=== PATIENT | female | born 1935 | race Caucasian/White ===

== ENCOUNTER → 2016-09-28 | Day surgery (SDC) | payer MEDICARE ==
[~2016-09-28] MED LIST: 1-ME1LIQ PO; ADVAI100I PO; ALEN70TA39 PO; HYDR-3580 PO; LACTATED RINGER'S 1000 ML INJ 1,000 ML ONE; LEVO125T3 PO; LISI40TA PO; PROPOFOL 100 MG/10 ML INJ IV ONE; PROZ40CA PO; RIVA10 PO; TAB-TAB PO; WALKER STANDARD
--- NOTE | 2016-09-28 13:09 | GIPROC ---
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 PREP QUALITY: fair PREP TYPE:Miralax ESTIMATED BLOOD LOSS: None CONSENT: The patient understands the risks and benefits of the procedure and understands that these risks include, but are not limited to: sedation, allergic reaction, infection, perforation and/or bleeding. Alternative means of evaluation and treatment include, among others: physical exam, x-rays, and/or surgical intervention. The patient elects to proceed with this endoscopic procedure. medical equipment was checked for proper function. Hand hygiene and appropriate measures for infection prevention was taken. After the risks, benefits and alternatives of the procedure were thoroughly explained, Informed consent was verified, confirmed and timeout was successfully executed by the treatment team. A digital exam revealed external hemorrhoids The EC-[id number] ([id number]) and [id number] ([id number]) endoscope was introduced through the anus and advanced to the terminal ileum which was intubated for a short distance. The instrument was then slowly withdrawn as the colon was fully examined. COLON FINDINGS: Diverticulosis sigmoid,descending polyp cecum-diminutive cold biopsy with complete removal polyp pedunculated ascending colon-7 mm-hot snare polypectomy with complete removal, another 5 mm polyp near first one -hot snare polypectomy polyp pedunculated hepatic flexure-6 mm-hot snare polypectomy with complete removal . amother 5 mm polyp near first one-hot snare polypectomy with removal three polyps in midtransverse 6 mm, 5 mm and 5 mm -all sessile-hot snare polypectomy with complete removal erythema IC valve-biopsy. Retroflexed views revealed internal hemorrhoids and Retroflexed views revealed small internal hemorrhoids The scope was then completely withdrawn from the patient and the procedure terminated. PROCEDURE WITHDRAWAL TIME:25minutes ADVERSE EVENTS: There were no complications. IMPRESSIONS: 1. Diverticulosis sigmoid,descending polyp cecum-diminutive cold biopsy with complete removal polyp pedunculated ascending colon-7 mm-hot snare polypectomy with complete removal, another 5 mm polyp near first one -hot snare polypectomy polyp pedunculated hepatic flexure-6 mm-hot snare polypectomy with complete removal . amother 5 mm polyp near first one-hot snare polypectomy with removal three polyps in midtransverse 6 mm, 5 mm and 5 mm -all sessile-hot snare polypectomy with complete removal erythema IC valve-biopsy 2. Retroflexed views revealed internal hemorrhoids 3. Retroflexed views revealed small internal hemorrhoids 4. Revealed external hemorrhoids RECOMMENDATIONS: 1. Await biopsy results. Biopsy results will not be ready for 7-10 days. If you don't hear from us in two weeks, call our office for results. 2. Avoid NSAIDS and Aspirin 3. Yearly rectal exams 4. Ct enterography if negative will need hematology consult RECALL: Colonoscopy, pending biopsy results Evita Nguyễn MD eSigned: Evita Nguyễn MD 09/28/2016 1:08 PM cc: Sal Paulino, [facility] Brittany, Aruna Lee M.D, and Travis Portillo M.D. PATIENT NAME: Daisy Hutchinson MR#: [id number]
--- NOTE | 2016-09-28 13:13 | GIPROC ---
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 TOPICAL ANESTHETIC: none CONSENT: The patient understands the risks and benefits of the procedure and understands that these risks include, but are not limited to: sedation, allergic reaction, infection, perforation and/or bleeding. Alternative means of evaluation and treatment include, among others: physical exam, x-rays, and/or surgical intervention. The patient elects to proceed with this endoscopic procedure. medical equipment was checked for proper function. Hand hygiene and appropriate measures for infection prevention was taken. After the risks, benefits and alternatives of the procedure were thoroughly explained, Informed consent was verified, confirmed and timeout was successfully executed by the treatment team. The patient was anesthetized with topical anesthesia and the EC-3490Li ([id number]) endoscope was introduced through the mouth and advanced to the proximal jejunum. Retroflexed views revealed no abnormalities The gastroscope was then slowly withdrawn and removed. S/p gastric bypass [id number]. ADVERSE EVENTS: There were no complications. IMPRESSIONS: 1. S/p gastric bypass [id number] 2. Retroflexed views revealed no abnormalities RECOMMENDATIONS: 1. Await biopsy results. Biopsy results will not be ready for 7-10 days. If you don't hear from us in two weeks, call our office for biopsy results. 2. Anti-reflux regimen PATIENT CONDITION: stable DISPOSITION: Home REPEAT EXAM: EGD pending biopsy results Evita Nguyễn MD eSigned: Evita Nguyễn MD 09/28/2016 1:12 PM cc: Sal Paulino [facility] Brittany Lee M.D.
== END | disposition home or self-care (01) ==
LOC: ESDC 10:34
PROVIDERS: ATTEND Internal Medicine Gastroenterology
DX: D50.9 Iron deficiency anemia, unspecified (principal); Z86.010 Personal history of colon polyps; K57.90 Diverticulosis of intestine, part unspecified, without perforation or abscess without bleeding; D12.0 Benign neoplasm of cecum; D12.2 Benign neoplasm of ascending colon; D12.3 Benign neoplasm of transverse colon; K64.8 Other hemorrhoids; K64.4 Residual hemorrhoidal skin tags
CPT/HCPCS: 00740; 00810; 43239; 45385; 88305; J7120

== ENCOUNTER 2017-05-22 11:31 | Inpatient (IN) | payer MEDICARE ==
[2017-05-22] VITALS (7 sets, daily range): BP systolic 125–192; BP diastolic 53–80; PULSE 60–74; RESP 16–22; TEMP 96.9–98.2; O2SAT 92–100
[~2017-05-22 11:31] MED LIST changes: -LACTATED RINGER'S 1000 ML INJ 1,000 ML ONE; -PROPOFOL 100 MG/10 ML INJ IV ONE
[2017-05-22] MEDS ORDERED: ACETAMINOPHEN 1000 MG/100 ML 100 ML IV ONE (12:00)
[2017-05-22] MEDS ORDERED: MORPHINE SULFATE 4 MG/ML INJ IV PUSH ONE ×2 (12:00→13:45)
[2017-05-22 12:52] LABS: AUTOMATED NEUTROPHIL # 5.7 TH/MM3 (1.8-7.7); BASOPHIL # 0.1 TH/MM3 (0-0.2); EOSINOPHIL # 0.1 TH/MM3 (0-0.4); EOSINOPHIL % 1.5 % (0.0-4.0); HEMATOCRIT 39.6 % (35.0-46.0); HEMOGLOBIN 13.1 GM/DL (11.6-15.3); LYMPH % 13.7 % (9.0-44.0); MEAN CELL VOLUME 84.1 FL (80.0-100.0); MEAN CORPUSCULAR HEMOGLOBIN 27.8 PG (27.0-34.0); MEAN CORPUSCULAR HGB CONC 33.1 % (32.0-36.0); MEAN PLATELET VOLUME 9.2 FL (7.0-11.0); MONO % 6.3 % (0.0-8.0); MONOCYTE # 0.5 TH/MM3 (0-0.9); NEUT % 77.5 % (16.0-70.0); PLATELET COUNT 147 TH/MM3 (150-450); RED BLOOD COUNT 4.71 MIL/MM3 (4.00-5.30); RED CELL DISTRIBUTION WIDTH 15.3 % (11.6-17.2); WHITE BLOOD COUNT 7.3 TH/MM3 (4.0-11.0)
[2017-05-22] MEDS ORDERED: LEVO125T4 PO (12:53)
[2017-05-22] MEDS ORDERED: DULO1CAP2 PO (12:53)
[2017-05-22] MEDS ORDERED: METO-309 PO (12:53)
[2017-05-22] MEDS ORDERED: ONCETAB7 PO (12:53)
[2017-05-22] MEDS ORDERED: AMLO5TAB2 PO (12:53)
--- NOTE | 2017-05-22 13:07 | RADRPT ---
EXAM DATE/TIME: 05/22/2017 12:38 [facility] COMPARISON: No previous studies available for comparison. INDICATIONS : Left proximal femur pain post fall today MEDICAL HISTORY : None. SURGICAL HISTORY : None. ENCOUNTER: Initial ACUITY: 1 day PAIN SCORE: 10/10 LOCATION: Left proximal femur FINDINGS: Comminuted displaced intertrochanteric fracture. The bones are osteopenic. CONCLUSION: Comminuted displaced intertrochanteric fracture. Julieta Hopson MD on May 22, 2017 at 13:04 Board Certified Radiologist. This report was verified electronically.
--- NOTE | 2017-05-22 13:09 | RADRPT ---
EXAM DATE/TIME: 05/22/2017 12:38 [facility] COMPARISON: No previous studies available for comparison. INDICATIONS : Left hip pain post fall today MEDICAL HISTORY : None. SURGICAL HISTORY : None. ENCOUNTER: Initial ACUITY: 1 day PAIN SCORE: 10/10 LOCATION: Left hip FINDINGS: 3 views of the left hip demonstrate a comminuted intertrochanteric fracture. CONCLUSION: Comminuted intertrochanteric fracture. Julieta Hopson MD on May 22, 2017 at 13:05 Board Certified Radiologist. This report was verified electronically.
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
[2017-05-22 13:14] LABS: ALBUMIN 3.6 GM/DL (3.4-5.0); ALT (GPT) 16 U/L (10-53); AST (GOT) 23 U/L (15-37); BICARBONATE 30.2 MEQ/L (21.0-32.0); BLOOD UREA NITROGEN 19 MG/DL (7-18); CALCIUM 8.5 MG/DL (8.5-10.1); CHLORIDE 106 MEQ/L (98-107); CREATININE 0.58 MG/DL (0.50-1.00); GLOMERULAR FILTRATION RATE 99 ML/MIN (>89); GLUCOSE,RANDOM 91 MG/DL (74-106); SODIUM (NA) 141 MEQ/L (136-145)
[2017-05-22 13:24] LABS: ALKALINE PHOSPHATASE 68 U/L (45-117); TOTAL BILIRUBIN ADULT 0.7 MG/DL (0.2-1.0); TOTAL PROTEIN 6.5 GM/DL (6.4-8.2)
[2017-05-22] MEDS ORDERED: ONDANSETRON HCL 4 MG/2 ML VIAL IV PRN (14:00)
[2017-05-22] MEDS ORDERED: ACETAMINOPHEN 325 MG TAB PO PRN (14:00)
--- NOTE | 2017-05-22 14:00 | HHI.HP ---
HPI Service [facility] Hospitalists Primary Care Physician Aruna Bran D.O. Admission Diagnosis Hip fracture Chief Complaint: Left hip pain Travel History International Travel<30 Days: No Contact w/Intl Traveler <30 Da: No Traveled to Known Affected Are: No History of Present Illness Mrs. Hutchinson is a pleasant 81 y/o WF with HTN, hx of atrial fibrillation, osteoporosis/osteoarthritis and hx of symptomatic bradycardia s/p PPM in 2013. Pt [place] [facility] [place] after a mechanical fall at home. She reports that she was making breakfast this morning in the kitchen when she somehow tripped and fell although she does not remember what she tripped over. She denies any dizziness, syncope or presyncope. She had immediate left hip pain and pushed her medical alert device. She reports that one week ago she tripped and fell in the bathroom over the bath mat and fractured her left clavicle and is in a sling. Patient typically gets around in her home under her own power. She occasionally uses a cane for balance when she is outside the house. She lives with her daughter and son-in-law but they have been out of town on vacation for the last week. Her grand-daughter, Kalpana, is at her bedside currently. She denies any chest pain, SOB, palpitations, weakness, diaphoresis, nausea/vomiting. X-rays in the ED revealed a left comminuted displaced intertrochanteric fracture. Orthopedic surgery has been consulted. Review of Systems Constitutional: DENIES: Fever, Chills, Dizziness Eyes: DENIES: Vision loss Ears, nose, mouth, throat: DENIES: Hearing loss Respiratory: DENIES: Cough, Shortness of breath Cardiovascular: DENIES: Chest pain, Palpitations, Lower Extremity Edema Gastrointestinal: DENIES: Abdominal pain, Nausea, Vomiting Genitourinary: DENIES: Hematuria, Dysuria Musculoskeletal: COMPLAINS OF: Joint pain, DENIES: Back pain, Neck pain Integumentary: DENIES: Abnormal pigmentation, Rash Neurologic: DENIES: Headache Psychiatric: DENIES: Confusion Past Family Social History Past Medical History Atrial fibrillation Hx of symptomatic bradycardia/pauses s/p PPM Chronic iron deficiency anemia Hx of gastric bypass surgery about 12 years ago Osteoarthritis/Osteoporosis COPD, PFTs in 2012 noted moderately severe obstructive lung defect HTN Hypothyroidism s/p thyroidectomy Psoriasis Hx of TIA per the outpt records, pt denies this Hx of thyroid cancer Hx of tobacco use Past Surgical History Dual chambered pacemaker placement in 2014 Cholecystectomy Right hip intramedullary nail fixation for intertrochanteric fracture Bilateral knee surgeries Gastric bypass Hysterectomy Thyroidectomy Shoulder surgery Appendectomy EGD/colonoscopy in September 2016 Reported Medications Once Daily Multivitamin 1 Tab PO DAILY Lopressor 25 Mg PO DAILY (?BID) Levothyroxine 125 Mcg PO DAILY Duloxetine DR 30 Mg PO DAILY Amlodipine 5 Mg PO DAILY Allergies: Coded Allergies: pregabalin (Unverified Allergy, Severe, 11/25/16) "DOCTOR TOLD ME NOT TO TAKE EVER AGAIN" adhesive (Unverified Allergy, Intermediate, 11/25/16) RASH/SKIN IRRIATATION procaine (Unverified Allergy, Mild, 11/25/16) "DOESN'T WORK" Family History Several family members with hx of colon cancer Social History Remote hx of tobacco use, pt smoked up to 3ppd x 30 years, quit in 1985 Rare alcohol use Pt lives with her daughter and son-in-law She usually walks under her own power at home but occasionally uses a cane when ambulating outside the house She is a , her passed around 18 months ago Physical Exam Vital Signs Vital Signs Date Time Temp Pulse Resp B/P (MAP) Pulse Ox O2 Delivery O2 Flow Rate FiO2 05/22/17 11:56 82 22 96 Room Air 05/22/17 11:56 98.0 74 22 192/80 (117) 96 Room Air 05/22/17 11:46 66 18 192/80 (117) 99 Physical Exam GENERAL: This is a well-nourished, well-developed patient, in no apparent distress. HEENT: Atraumatic. Normocephalic. No temporal or scalp tenderness. No scleral icterus. Airway patent. NECK: Trachea midline, supple, nontender. CARDIO: Regular. RESP: CTA bilaterally. No wheezes, rales, or rhonchi. ABD: +BS, soft, non-tender, nondistended. EXT: Extremities without clubbing, cyanosis, or edema. LUE in sling NEURO: Awake and alert. Motor and sensory grossly within normal limits. Normal speech. Laboratory Laboratory Tests Test 05/22/17 12:07 White Blood Count 7.3 Red Blood Count 4.71 Hemoglobin 13.1 Hematocrit 39.6 Mean Corpuscular Volume 84.1 Mean Corpuscular Hemoglobin 27.8 Mean Corpuscular Hemoglobin Concent 33.1 Red Cell Distribution Width 15.3 Platelet Count 147 Mean Platelet Volume 9.2 Neutrophils (%) (Auto) 77.5 Lymphocytes (%) (Auto) 13.7 Monocytes (%) (Auto) 6.3 Eosinophils (%) (Auto) 1.5 Basophils (%) (Auto) 1.0 Neutrophils # (Auto) 5.7 Lymphocytes # (Auto) 1.0 Monocytes # (Auto) 0.5 Eosinophils # (Auto) 0.1 Basophils # (Auto) 0.1 CBC Comment DIFF FINAL Differential Comment Blood Urea Nitrogen 19 Creatinine 0.58 Random Glucose 91 Total Protein 6.5 Albumin 3.6 Calcium Level 8.5 Alkaline Phosphatase 68 Aspartate Amino Transf (AST/SGOT) 23 Alanine Aminotransferase (ALT/SGPT) 16 Total Bilirubin 0.7 Sodium Level 141 Potassium Level 3.9 Chloride Level 106 Carbon Dioxide Level 30.2 Anion Gap 5 Estimat Glomerular Filtration Rate 99 Result Diagram: 05/22/17 1207 05/22/17 1207 Imaging Last Impressions Hip X-Ray 05/22/17 0000 Signed Impressions: Service Date/Time: Monday, May 22, 2017 12:38 - CONCLUSION: Comminuted intertrochanteric fracture. Julieta Hopson MD Head CT 05/22/17 0000 Signed Impressions: Service Date/Time: Monday, May 22, 2017 13:44 - CONCLUSION: No acute disease. No significant change has occurred. Yury Perez MD Femur X-Ray 05/22/17 0000 Signed Impressions: Service Date/Time: Monday, May 22, 2017 12:38 - CONCLUSION: Comminuted displaced intertrochanteric fracture. Julieta Hopson MD Cervical Spine CT 05/22/17 0000 Signed Impressions: Service Date/Time: Monday, May 22, 2017 13:44 - CONCLUSION: Stable degenerative changes of the cervical spine. No evidence of acute bony injury. Yury Perez MD Caplaxmii VTE Risk Assessment Caprini VTE Risk Assessment: Mod/High Risk (score >= 2) Caprini Risk Assessment Model Point Value = 1 Point Value = 2 Point Value = 3 Point Value = 5 Age 41-60 Minor surgery BMI > 25 kg/m2 Swollen legs Varicose veins or History of unexplained or recurrent spontaneous Oral contraceptives or hormone replacement Sepsis (< 1 month) Serious lung disease, including pneumonia (< 1 month) Abnormal pulmonary function Acute myocardial infarction Congestive heart failure (< 1 month) History of inflammatory bowel disease Medical patient at bed rest Age 61-74 Arthroscopic surgery Major open surgery (> 45 min) Laparoscopic surgery (> 45 min) Malignancy Confined to bed (> 72 hours) Immobilizing plaster cast Central venous access Age >= 75 History of VTE Family history of VTE Factor V Leiden Prothrombin [id number] Lupus anticoagulant Anticardiolipin antibodies Elevated serum homocysteine Heparin-induced thrombocytopenia Other congenital or acquired thrombophilia Stroke (< 1 month) Elective arthroplasty Hip, pelvis, or leg fracture Acute spinal cord injury (< 1 month) Prophylaxis Regimen Total Risk Factor Score Risk Level Prophylaxis Regimen 0-1 Low Early ambulation 2 Moderate Order ONE of the following: *Sequential Compression Device (SCD) *Heparin 5000 units SQ BID 3-4 Higher Order ONE of the following medications: *Heparin 5000 units SQ TID *Enoxaparin/Lovenox 40 mg SQ daily (WT < 150 kg, CrCl > 30 mL/min) *Enoxaparin/Lovenox 30 mg SQ daily (WT < 150 kg, CrCl > 10-29 mL/min) *Enoxaparin/Lovenox 30 mg SQ BID (WT < 150 kg, CrCl > 30 mL/min) AND/OR *Sequential Compression Device (SCD) 5 or more Highest Order ONE of the following medications: *Heparin 5000 units SQ TID (Preferred with Epidurals) *Enoxaparin/Lovenox 40 mg SQ daily (WT < 150 kg, CrCl > 30 mL/min) *Enoxaparin/Lovenox 30 mg SQ daily (WT < 150 kg, CrCl > 10-29 mL/min) *Enoxaparin/Lovenox 30 mg SQ BID (WT < 150 kg, CrCl > 30 mL/min) AND *Sequential Compression Device (SCD) Assessment and Plan Problem List: (1) Hip fracture, left ICD Codes: S72.002A - Fracture of unspecified part of neck of left femur, initial encounter for closed fracture Status: Acute Plan: Left hip intertrochanteric fracture - Pt is an 81 y/o female with HTN, hx of atrial fibrillation, osteoporosis/ osteoarthritis and hx of symptomatic bradycardia s/p PPM in 2013. - Pt [place] [facility] after a mechanical fall at home when she somehow tripped and fell in the kitchen although she does not remember what she tripped over. No reported dizziness, weakness, syncope or presyncope. - X-rays in the ED revealed a left comminuted displaced intertrochanteric fracture. - Orthopedic surgery has been consulted. - CT hip has been ordered - Head CT was negative for acute changes - Cervical spine CT was negative for any acute injury - Per discussion with ED physician, pt planned for surgical intervention likely tomorrow - Given gently IVF - Pt without any hx of CAD, CVA, or diabetes - She reports that her BP is typically well controlled on Metoprolol 25mg once daily and Norvasc 5mg po daily - BP was quite elevated at admission, likely related to pain and that she had not yet taken her BP medications this morning. Her BP improved to 133/66 at the time of my interview in the ED after pts pain was better controlled. - Cont. pain control PRN with Creola and Morphine - NPO after MN except meds - Supportive care - DVT prophylaxis with SCDs Left clavicular fracture - She reports that one week ago she tripped and fell in the bathroom over the bath mat and fractured her left clavicle and is in a sling. - Pt not reporting any increased pain in the left arm/shoulder area - IS use with sling in place Hx of atrial fibrillation Hx of symptomatic bradycardia s/p PPM in 2013 - Pt currently in NSR on telemetry - EKG - Cont. telemetry monitoring - Resume Metoprolol and Norvasc as BP allows - Pt takes ASA 81mg po daily as an outpt for anticoagulation - She has been on Xarelto in the past when she had previous hip surgery in 2014 HTN - Resume home meds as BP allows - Clonidine PRN - Vasotec PRN COPD, PFTs in 2012 noted moderately severe obstructive lung defect Hx of tobacco use, none since 1985 - Pt does not use any inhalers or nebulizers as an outpt - Duonebs PRN (2) Hypertension ICD Codes: I10 - Hypertension Status: Acute (3) Afib ICD Codes: I48.91 - Afib Status: Acute (4) History of pacemaker ICD Codes: Z95.0 - History of pacemaker Status: Acute Assessment and Plan Patient examined. Assessment and plan formulated with Kalpana Rodas PA-C. I agree with the above. hip fx. s/p trip fall pt denies dizziness, cp, palpitations, syncope. her rhythm is paced. monitor on tele her bp has come down to sbp 130s. no medical contraindication to proceeding with planned ortho surgery tomorrow. Physician Certification 2 Midnight Certification Type: Admission for Inpatient Services Order for Inpatient Services The services are ordered in accordance with Medicare regulations or non- Medicare payer requirements, as applicable. In the case of services not specified as inpatient-only, they are appropriately provided as inpatient services in accordance with the 2-midnight benchmark. Estimated LOS (days): 3 3 days is the estimated time the patient will need to remain in the hospital, assuming treatment plan goals are met and no additional complications. Post-Hospital Plan: Not yet determined Problem Qualifiers (1) Hip fracture, left: Qualified Codes: S72.002A - Fracture of unspecified part of neck of left femur , initial encounter for closed fracture Kalpana Rodas May 22, 2017 14:00 Sly Reis MD May 22, 2017 17:04
--- NOTE | 2017-05-22 14:02 | PD ---
Data Data Last Documented VS Vital Signs Date Time Temp Pulse Resp B/P (MAP) Pulse Ox O2 Delivery O2 Flow Rate FiO2 05/22/17 11:56 82 22 96 Room Air 05/22/17 11:56 98.0 192/80 (117) Orders Orders Ct Brain W/O Iv Contrast(Rout) (05/22/17 ) Ct Cerv Spine W/O Contrast (05/22/17 ) Complete Blood Count With Diff (05/22/17 11:52) Comprehensive Metabolic Panel (05/22/17 11:52) ^ Insert Iv (05/22/17 11:52) Hip, Uni(Ap&Lat) Wo Ap Pelvis (05/22/17 ) Morphine Inj (Morphine Inj) (05/22/17 12:00) Acetaminophen 1000 Mg/100 Ml (Ofirmev 10 (05/22/17 12:00) Femur, One View (05/22/17 ) Ct Hip W/O Contrast (05/22/17 ) Morphine Inj (Morphine Inj) (05/22/17 13:45) Admit Order (Ed Use Only) (05/22/17 ) Consult Orthopedic (05/22/17 ) Labs Laboratory Tests Test 05/22/17 12:07 White Blood Count 7.3 TH/MM3 Red Blood Count 4.71 MIL/MM3 Hemoglobin 13.1 GM/DL Hematocrit 39.6 % Mean Corpuscular Volume 84.1 FL Mean Corpuscular Hemoglobin 27.8 PG Mean Corpuscular Hemoglobin Concent 33.1 % Red Cell Distribution Width 15.3 % Platelet Count 147 TH/MM3 Mean Platelet Volume 9.2 FL Neutrophils (%) (Auto) 77.5 % Lymphocytes (%) (Auto) 13.7 % Monocytes (%) (Auto) 6.3 % Eosinophils (%) (Auto) 1.5 % Basophils (%) (Auto) 1.0 % Neutrophils # (Auto) 5.7 TH/MM3 Lymphocytes # (Auto) 1.0 TH/MM3 Monocytes # (Auto) 0.5 TH/MM3 Eosinophils # (Auto) 0.1 TH/MM3 Basophils # (Auto) 0.1 TH/MM3 CBC Comment DIFF FINAL Differential Comment Blood Urea Nitrogen 19 MG/DL Creatinine 0.58 MG/DL Random Glucose 91 MG/DL Total Protein 6.5 GM/DL Albumin 3.6 GM/DL Calcium Level 8.5 MG/DL Alkaline Phosphatase 68 U/L Aspartate Amino Transf (AST/SGOT) 23 U/L Alanine Aminotransferase (ALT/SGPT) 16 U/L Total Bilirubin 0.7 MG/DL Sodium Level 141 MEQ/L Potassium Level 3.9 MEQ/L Chloride Level 106 MEQ/L Carbon Dioxide Level 30.2 MEQ/L Anion Gap 5 MEQ/L Estimat Glomerular Filtration Rate 99 ML/MIN MDM Supervised Visit with ESTER: No Narrative Course 81-year-old woman, mechanical fall, hip fracture. On aspirin. No other blood thinners. CT head and neck are pending. Spoke with Dr. Gonzalez. X-rays are open ambiguous. Patient unable to get in a better position for formal x-rays. Request CT hip which is ordered. Diagnosis Primary Impression: Hip fracture, left Admitting Information Admitting Physician Requests: it Cameron Salmon MD May 22, 2017 14:02
--- NOTE | 2017-05-22 14:23 | RADRPT ---
EXAM DATE/TIME: 05/22/2017 13:44 [facility] COMPARISON: CT BRAIN W/O CONTRAST, October 30, 2014, 17:57. INDICATIONS : Fall, laceration to back of head. RADIATION DOSE: 52.53 CTDIvol (mGy) MEDICAL HISTORY : Carcinoma, thyroid. Cardiovascular disease Hypertension. SURGICAL HISTORY : Appendectomy. Cholecystectomy.Hysterectomy. ENCOUNTER: Initial ACUITY: 1 day PAIN SCALE: 3/10 LOCATION: Bilateral occipital TECHNIQUE: Multiple contiguous axial images were obtained of the head. Using automated exposure control and adj ustment of the mA and/or kV according to patient size, radiation dose was kept as low as reasonably a chievable to obtain optimal diagnostic quality images. DICOM format image data is available electro nically for review and comparison. FINDINGS: CEREBRUM: The ventricles are normal for age. No evidence of midline shift, mass lesion, hemorrhage or acute in farction. No extra-axial fluid collections are seen. POSTERIOR FOSSA: The cerebellum and brainstem are intact. The 4th ventricle is midline. The cerebellopontine angle i s unremarkable. EXTRACRANIAL: The visualized portion of the orbits is intact. SKULL: The calvaria is intact. No evidence of skull fracture. CONCLUSION: No acute disease. No significant change has occurred. Yury Perez MD on May 22, 2017 at 14:20 Board Certified Radiologist. This report was verified electronically.
--- NOTE | 2017-05-22 14:33 | RADRPT ---
EXAM DATE/TIME: 05/22/2017 13:44 [facility] COMPARISON: CT CERVICAL SPINE W/O CONTRAST, October 30, 2014, 17:57. INDICATIONS : Fall, neck pain. RADIATION DOSE: 16.32 CTDIvol (mGy) MEDICAL HISTORY : Cardiovascular disease. Hypertension. Carcinoma, thyroid. SURGICAL HISTORY : Appendectomy. Cholecystectomy.Hysterectomy.Gastric bypass. ENCOUNTER: Initial ACUITY: 1 day PAIN SCALE: 3/10 LOCATION: Bilateral neck TECHNIQUE: Volumetric scanning of the cervical spine was performed. Multiplanar reconstructions in the sagittal, coronal and oblique axial planes were performed. Using automated exposure control and adjustment o f the mA and/or kV according to patient size, radiation dose was kept as low as reasonably achievable to obtain optimal diagnostic quality images. DICOM format image data is available electronically f or review and comparison. FINDINGS: The bony structures are intact with no evidence of fracture, compression, subluxation, or destructive change. There are similar degenerative changes as the prior CT scan with degenerative disc disease C 2-3 and C4-C7 with apparent fusion of C67. Osteophyte disc complexes noted multiple levels as well as facet arthritic changes. CONCLUSION: Stable degenerative changes of the cervical spine. No evidence of acute bony injury. Yury Perez MD on May 22, 2017 at 14:26 Board Certified Radiologist. This report was verified electronically.
--- NOTE | 2017-05-22 14:48 | RADRPT ---
EXAM DATE/TIME: 05/22/2017 13:48 [facility] COMPARISON: HIP LEFT (AP&LAT 2/3VWS) WO AP PELVIS, May 22, 2017, 12:38. INDICATIONS : Fall, left hip fracture. RADIATION DOSE: 19.31 CTDIvol (mGy) MEDICAL HISTORY : Cardiovascular disease. Hypertension. Carcinoma, thyroid. SURGICAL HISTORY : Appendectomy. Cholecystectomy. Hysterectomy.Gastric bypass. ENCOUNTER: Initial ACUITY: 1 day PAIN SCALE: 10/10 LOCATION: Left pelvis TECHNIQUE: Volumetric scanning of the hip was performed. Using automated exposure control and adjustment of the mA and/or kV according to patient size, radiation dose was kept as low as reasonably achievable to o btain optimal diagnostic quality images. DICOM format image data is available electronically for rev iew and comparison. FINDINGS: Bony structures are osteopenic or osteoporotic with a internal fixation device sliding nail transfixi ng the right femur and degenerative changes of the lower lumbar spine primarily facet arthritic luo e. Intrapelvic contents are negative. There is a comminuted left femur intertrochanteric f racture with mild impaction. No evidence of dislocation or other fractures CONCLUSION: Comminuted left femur intertrochanteric fracture with mild impaction. Yury Perez MD on May 22, 2017 at 14:43 Board Certified Radiologist. This report was verified electronically.
[2017-05-22] MEDS ORDERED: ASPI-516 CHEW (15:06)
[2017-05-22] MEDS ORDERED: ENALAPRILAT 1.25 MG/ML VIAL IV PUSH PRN (15:15)
[2017-05-22] MEDS ORDERED: cloNIDine HCL 0.1 MG TAB PO PRN (15:15)
[2017-05-22] MEDS ORDERED: RESP: ALBUTEROL 2.5 MG/IPRATROPIUM 0.5 MG NEB (PRN) NEB (15:15)
[2017-05-22] MEDS: MORPHINE SULFATE 4 MG/ML INJ IV PUSH PRN ×2 (15:59→22:34)
[2017-05-22] MEDS: SODIUM CHLOR 0.9% 1000 ML INJ 1,000 ML IV SCH (16:02)
--- NOTE | 2017-05-22 16:43 | PD.CONS ---
HPI Service Orthopedic Surgeons Consult Requested By Reason for Consult Left intertrochanteric femur fracture Primary Care Physician Aruna Bran D.O. Admission Diagnosis Hip fracture Diagnoses: (1) Hip fracture, left Diagnosis: Principal (2) Hypertension Diagnosis: Secondary (3) Afib Diagnosis: Secondary (4) History of pacemaker Diagnosis: Secondary Chief Complaint: Left hip pain History of Present Illness 81 y/o WF with HTN, hx of atrial fibrillation, osteoporosis/osteoarthritis and hx of symptomatic bradycardia s/p PPM in 2013. Pt presented to the ED at [facility] [place] on 05/22/17 after a mechanical fall at home. She denies any dizziness, syncope or presyncope. She had immediate left hip pain and pushed her medical alert device. She reports that one week ago she tripped and fell in the bathroom over the bath mat and fractured her left clavicle and is in a sling. Patient typically gets around in her home under her own power. She occasionally uses a cane for balance when she is outside the house. Review of Systems Constitutional: DENIES: Fever Endocrine: DENIES: Polyuria Eyes: DENIES: Blurred vision Ears, nose, mouth, throat: DENIES: Throat pain Respiratory: DENIES: Cough Cardiovascular: DENIES: Chest pain Gastrointestinal: DENIES: Abdominal pain Genitourinary: DENIES: Urinary incontinence Musculoskeletal: COMPLAINS OF: Joint pain, Joint Swelling Integumentary: DENIES: Rash Hematologic/lymphatic: DENIES: Bruising Immunologic/allergic: DENIES: Eczema Neurologic: DENIES: Abnormal gait Psychiatric: DENIES: Anxiety Past Family Social History Past Medical History Hypertension, A. fib, previous pacemaker Past Surgical History Right intertrochanteric femur fracture status post intramedullary nail by Dr. Corral Pacemaker placement Reported Medications Please see full chart Allergies: Coded Allergies: pregabalin (Unverified Allergy, Severe, 11/25/16) "DOCTOR TOLD ME NOT TO TAKE EVER AGAIN" adhesive (Unverified Allergy, Intermediate, 11/25/16) RASH/SKIN IRRIATATION procaine (Unverified Allergy, Mild, 11/25/16) "DOESN'T WORK" Active Ordered Medications Current Medications Medications (Trade) Dose Ordered Sig/Joshua Route Start Time Stop Time Status Last Admin (Tylenol) 650 mg Q4H PRN PO 05/22/17 14:00 (Zofran Inj) 4 mg Q6H PRN IV 05/22/17 14:00 (Morphine Inj) 4 mg Q3H PRN IV PUSH 05/22/17 14:00 05/22/17 15:59 ([place] 7.5-325 Mg) 1 tab Q4H PRN PO 05/22/17 14:00 Sodium Chloride 1,000 ml @ 80 mls/hr [id number] IV 05/22/17 14:45 05/22/17 16:02 (Duoneb Neb) 1 ampule Q4HR NEB PRN NEB 05/22/17 15:15 (Catapres) 0.1 mg Q6H PRN PO 05/22/17 15:15 (Vasotec Inj) 1.25 mg Q6H PRN IV PUSH 05/22/17 15:15 (Norvasc) 5 mg DAILY PO 05/23/17 09:00 (Cymbalta Dr) 30 mg DAILY PO 05/23/17 09:00 (Synthroid) 125 mcg DAILY@0600 PO 05/23/17 06:00 (Lopressor) 25 mg DAILY PO 05/23/17 09:00 Reported Meds & Active Scripts Active Reported Aspirin 81 Mg Chew 81 Mg CHEW DAILY Once Daily (Multivitamin) 1 Each Tablet 1 Tab PO DAILY Lopressor (Metoprolol Tartrate) 50 Mg Tab 25 Mg PO DAILY Levothyroxine (Levothyroxine Sodium) 125 Mcg Tab 125 Mcg PO DAILY Duloxetine DR (Duloxetine HCl) 30 Mg Capdr 30 Mg PO DAILY Amlodipine (Amlodipine Besylate) 5 Mg Tab 5 Mg PO DAILY Family History Noncontributory Social History Denies tobacco use Physical Exam Vital Signs Vital Signs Date Time Temp Pulse Resp B/P (MAP) Pulse Ox O2 Delivery O2 Flow Rate FiO2 05/22/17 16:09 18 05/22/17 16:02 05/22/17 14:10 73 16 130/60 (83) 100 Room Air 05/22/17 11:56 82 22 96 Room Air 05/22/17 11:56 98.0 74 22 192/80 (117) 96 Room Air 05/22/17 11:46 66 18 192/80 (117) 99 Physical Exam Awake, alert, no acute distress Normocephalic Pupils equal No JVD Moist mucous membranes Nonlabored respirations Regular rate Soft nontender abdomen Left lower extremity: Positive logroll. Unable to assess hip and knee range of motion due to pain. Neurovascular intact distally with positive EHL, FHL, dorsiflexion and plantarflexion. Sensation appears intact. Her size pedis pulses palpable. Left upper extremity: Mild ecchymosis and tenderness palpation over clavicle. Full active range of motion and strength throughout. Sensation intact. Radial pulses palpable. Right upper extremity and right lower extremity: No tenderness palpation or visible deformities. Full active range of motion and strength throughout. Sensation intact. Radial and dorsalis pedis pulses are palpable. No rash Normal affect Laboratory Laboratory Tests Test 05/22/17 12:07 White Blood Count 7.3 Red Blood Count 4.71 Hemoglobin 13.1 Hematocrit 39.6 Mean Corpuscular Volume 84.1 Mean Corpuscular Hemoglobin 27.8 Mean Corpuscular Hemoglobin Concent 33.1 Red Cell Distribution Width 15.3 Platelet Count 147 Mean Platelet Volume 9.2 Neutrophils (%) (Auto) 77.5 Lymphocytes (%) (Auto) 13.7 Monocytes (%) (Auto) 6.3 Eosinophils (%) (Auto) 1.5 Basophils (%) (Auto) 1.0 Neutrophils # (Auto) 5.7 Lymphocytes # (Auto) 1.0 Monocytes # (Auto) 0.5 Eosinophils # (Auto) 0.1 Basophils # (Auto) 0.1 CBC Comment DIFF FINAL Differential Comment Blood Urea Nitrogen 19 Creatinine 0.58 Random Glucose 91 Total Protein 6.5 Albumin 3.6 Calcium Level 8.5 Alkaline Phosphatase 68 Aspartate Amino Transf (AST/SGOT) 23 Alanine Aminotransferase (ALT/SGPT) 16 Total Bilirubin 0.7 Sodium Level 141 Potassium Level 3.9 Chloride Level 106 Carbon Dioxide Level 30.2 Anion Gap 5 Estimat Glomerular Filtration Rate 99 Result Diagram: 05/22/17 1207 05/22/17 1207 Imaging Last 24 hours Impressions Lower Extremity CT 05/22/17 0000 Signed Impressions: Service Date/Time: Monday, May 22, 2017 13:48 - CONCLUSION: Comminuted left femur intertrochanteric fracture with mild impaction. Yury Perez MD Hip X-Ray 05/22/17 Signed Impressions: Service Date/Time: Monday, May 22, 2017 12:38 - CONCLUSION: Comminuted intertrochanteric fracture. Julieta Hopson MD Head CT 05/22/17 Signed Impressions: Service Date/Time: Monday, May 22, 2017 13:44 - CONCLUSION: No acute disease. No significant change has occurred. Yury Perez MD Femur X-Ray 05/22/17 Signed Impressions: Service Date/Time: Monday, May 22, 2017 12:38 - CONCLUSION: Comminuted displaced intertrochanteric fracture. Julieta Hopson MD Cervical Spine CT 05/22/17 Signed Impressions: Service Date/Time: Monday, May 22, 2017 13:44 - CONCLUSION: Stable degenerative changes of the cervical spine. No evidence of acute bony injury. Yury Perez MD Assessment & Plan Assessment and Plan 81-year-old female with multiple medical problems who presents after mechanical trip and fall with left intertrochanteric femur fracture Options were discussed with the patient and her family. Risks, benefits, alternatives were discussed. Recommendation of operative intervention in the form of intramedullary nail of her left intertrochanteric femur fracture was discussed. Risks of surgery including but not limited to: Infection, nonunion or malunion, hardware malposition or failure, neurovascular injury, possible need for further surgery, and other unforeseen consultations were all discussed with the patient. At this time she is consented to procedure. I will ask medicine to evaluate the patient and determine whether she needs cardiac clearance prior to proceeding to surgery. Patient does have a history of a pacemaker along with afib. Patient will be nothing by mouth after midnight with plan for surgery tomorrow, Tuesday 05/23. Zaria Espinoza MD May 22, 2017 16:43
[2017-05-22 21:17] LABS: PROTHROMBIN TIME - PATIENT 10.3 SEC (9.8-11.6)
[2017-05-23 04:30] VITALS: BP 121/60; PULSE 60; RESP 16; TEMP 98.6; O2SAT 95
[2017-05-23] MEDS: SODIUM CHLOR 0.9% 1000 ML INJ 1,000 ML IV SCH ×2 (04:35→15:45)
[2017-05-23] MEDS: MORPHINE SULFATE 4 MG/ML INJ IV PUSH PRN ×4 (05:51→20:55)
[2017-05-23] MEDS: LEVOTHYROXINE SODIUM 125 MCG TAB PO SCH (05:51)
[2017-05-23] MEDS ORDERED: POVIDONE IODINE 5% (ANTISEPSIS KIT) 4 APPLICATIONS EACH NARE PRN (06:45)
[2017-05-23] MEDS ORDERED: LACTATED RINGER'S 1000 ML IV PRN (06:45)
[2017-05-23] MEDS ORDERED: CHLORHEXIDINE GLUCONATE 2 % 1 PACK (2 CLOTHS) TOPICAL PRN (06:45)
[2017-05-23 07:45] LABS: AUTOMATED NEUTROPHIL # 3.8 TH/MM3 (1.8-7.7); BASOPHIL # 0.1 TH/MM3 (0-0.2); BASOPHIL % 1.1 % (0.0-2.0); EOSINOPHIL # 0.1 TH/MM3 (0-0.4); EOSINOPHIL % 2.3 % (0.0-4.0); HEMATOCRIT 32.5 % (35.0-46.0); HEMOGLOBIN 10.8 GM/DL (11.6-15.3); LYMPH % 17.2 % (9.0-44.0); LYMPHOCYTE # 0.9 TH/MM3 (1.0-4.8); MEAN CELL VOLUME 83.2 FL (80.0-100.0); MEAN CORPUSCULAR HEMOGLOBIN 27.6 PG (27.0-34.0); MEAN CORPUSCULAR HGB CONC 33.2 % (32.0-36.0); MEAN PLATELET VOLUME 9.1 FL (7.0-11.0); MONO % 10.2 % (0.0-8.0); MONOCYTE # 0.6 TH/MM3 (0-0.9); NEUT % 69.2 % (16.0-70.0); PLATELET COUNT 115 TH/MM3 (150-450); RED CELL DISTRIBUTION WIDTH 14.7 % (11.6-17.2); WHITE BLOOD COUNT 5.5 TH/MM3 (4.0-11.0)
[2017-05-23] MEDS: DULoxetine HCl DR 30 MG CAP PO SCH (07:47)
[2017-05-23] MEDS: METOPROLOL TARTRATE 25 MG TAB PO SCH (07:48)
[2017-05-23] MEDS: amLODIPine BESYLATE 5 MG TAB PO SCH (07:48)
[2017-05-23 08:00] VITALS: BP 115/65; PULSE 63; RESP 18; TEMP 98; O2SAT 90
[2017-05-23 08:05] LABS: BICARBONATE 28.2 MEQ/L (21.0-32.0); CALCIUM 8.2 MG/DL (8.5-10.1); CREATININE 0.54 MG/DL (0.50-1.00); MAGNESIUM 1.9 MG/DL (1.5-2.5)
[2017-05-23 12:00] VITALS: BP 130/72; PULSE 64; PULSE 69; RESP 18; TEMP 100.2; O2SAT 90
[2017-05-23] MEDS ORDERED: DEXAMETHASONE SOD PHOS 4 MG/ML VIAL IV ONE (12:00)
[2017-05-23] MEDS ORDERED: PROPOFOL 200 MG/20 ML AMP IV ONE (12:00)
[2017-05-23] MEDS ORDERED: ePHEDrine/NS 25 MG/5 ML SYRINGE IV ONE (12:00)
[2017-05-23] MEDS ORDERED: ONDANSETRON HCL 4 MG/2 ML VIAL IV ONE (12:00)
[2017-05-23] MEDS ORDERED: SODIUM CHLOR 0.9% 250 ML INJ 250 ML IV ONE (12:00)
[2017-05-23] MEDS ORDERED: LIDOCAINE HCL 1% PF 5 ML SYRINGE OTHER ONE (12:00)
[2017-05-23] MEDS ORDERED: STERILE WATER FOR INJECTION 20 ML VIAL IV ONE (12:00)
--- NOTE | 2017-05-23 12:33 | PD.ORT.PN ---
Subjective Subjective Remarks Patient resting comfortably currently. Denies chest pain or shortness of breath. Anxious to have surgery. Objective Vitals Vital Signs Date Time Temp Pulse Resp B/P (MAP) Pulse Ox O2 Delivery O2 Flow Rate FiO2 05/23/17 12:00 100.2 64 18 130/72 (91) 90 05/23/17 09:01 18 05/23/17 08:00 98.0 63 18 115/65 (82) 90 05/23/17 04:30 98.6 60 16 121/60 (80) 95 05/22/17 23:35 98.2 65 17 125/53 (77) 94 05/22/17 22:30 62 05/22/17 20:45 97.6 60 17 138/70 (92) 92 05/22/17 16:02 05/22/17 15:40 96.9 64 18 125/70 (88) 94 05/22/17 14:10 73 16 130/60 (83) 100 Room Air I/O 05/22/17 05/22/17 05/22/17 05/23/17 05/23/17 05/23/17 07:00 15:00 23:00 07:00 15:00 23:00 Intake Total 240 ml 240 ml Output Total 1125 ml Balance 240 ml -885 ml Intake Oral 240 ml 240 ml Output Urine Total 1125 ml # Voids 0 # Bowel Movements 0 0 Result Diagram: 05/23/17 0625 05/23/17 0625 Other Results Laboratory Tests Test 05/22/17 20:15 Prothromb Time International Ratio 1.0 RATIO Prothrombin Time 10.3 SEC (9.8-11.6) Objective Remarks Awake, alert, no acute distress. Left upper extremity in sling. Neurovascular intact distally. Left lower extremity: Continues to have left hip pain and swelling. Neurovascular intact distally. Negative Homans Assessment & Plan Assessment and Plan 81-year-old female with multiple medical problems who presents after mechanical trip and fall with left intertrochanteric femur fracture Patient has been nothing by mouth since midnight with plan for surgery today. Plan for intramedullary nail left femur Zaria Espinoza MD May 23, 2017 12:33
--- NOTE | 2017-05-23 13:27 | RADRPT ---
EXAM DATE/TIME: 05/23/2017 13:09 [facility] COMPARISON: No previous studies available for comparison. INDICATIONS : Fracture. MEDICAL HISTORY : Cardiovascular disease. Hypertension. Carcinoma, thyroid. SURGICAL HISTORY : Appendectomy. Cholecystectomy. Hysterectomy.Gastric bypass. ENCOUNTER: Subsequent ACUITY: 1 day PAIN SCORE: 0/10 LOCATION: Left Clavicle. FINDINGS: There is a superior cephalad corner fracture of the distal clavicle at the region of the a.c. joint s lightly cephalad displaced. Remainder bony structures are intact. CONCLUSION: Distal left clavicle fracture as described Yury Perez MD on May 23, 2017 at 13:23 Board Certified Radiologist. This report was verified electronically.
[2017-05-23] MEDS ORDERED: BUPIVACAINE/EPINEPHRINE 0.25% 50 ML VIAL ONE (13:32)
[2017-05-23] MEDS ORDERED: GENTAMICIN SULFATE 80 MG/2 ML VIAL ONE (13:32)
--- NOTE | 2017-05-23 13:48 | HHI.PR ---
Subjective Remarks no complaints. eager for surgery to be done. Objective Vitals heart reg lung cta abd s/nt ext no pitting. vicente Vital Signs Date Time Temp Pulse Resp B/P (MAP) Pulse Ox O2 Delivery O2 Flow Rate FiO2 05/23/17 12:00 100.2 64 18 130/72 (91) 90 05/23/17 09:01 18 05/23/17 08:00 98.0 63 18 115/65 (82) 90 05/23/17 04:30 98.6 60 16 121/60 (80) 95 05/22/17 23:35 98.2 65 17 125/53 (77) 94 05/22/17 22:30 62 05/22/17 20:45 97.6 60 17 138/70 (92) 92 05/22/17 16:02 05/22/17 15:40 96.9 64 18 125/70 (88) 94 05/22/17 14:10 73 16 130/60 (83) 100 Room Air Result Diagram: 05/23/1725 05/23/17 0625 Imaging Last Impressions Hip X-Ray 05/22/17 0000 Signed Impressions: Service Date/Time: Monday, May 22, 2017 12:38 - CONCLUSION: Comminuted intertrochanteric fracture. Julieta Hopson MD Head CT 05/22/17 0000 Signed Impressions: Service Date/Time: Monday, May 22, 2017 13:44 - CONCLUSION: No acute disease. No significant change has occurred. Yury Perez MD Femur X-Ray 05/22/17 0000 Signed Impressions: Service Date/Time: Monday, May 22, 2017 12:38 - CONCLUSION: Comminuted displaced intertrochanteric fracture. Julieta Hopson MD Cervical Spine CT 05/22/17 0000 Signed Impressions: Service Date/Time: Monday, May 22, 2017 13:44 - CONCLUSION: Stable degenerative changes of the cervical spine. No evidence of acute bony injury. Yury Perez MD A/P Problem List: (1) Hip fracture, left ICD Codes: S72.002A - Fracture of unspecified part of neck of left femur, initial encounter for closed fracture Status: Acute Plan: Left hip intertrochanteric fracture - Pt is an 81 y/o female with HTN, hx of atrial fibrillation, osteoporosis/ osteoarthritis and hx of symptomatic bradycardia s/p PPM in 2013. - Pt presented to the ED at [facility] [place] [place] on 05/22/17 after a mechanical fall at home when she somehow tripped and fell in the kitchen although she does not remember what she tripped over. No reported dizziness, weakness, syncope or presyncope. - X-rays in the ED revealed a left comminuted displaced intertrochanteric fracture. - Orthopedic surgery has been consulted. - CT hip 05/22 confirms the fracture - Head CT was negative for acute changes - Cervical spine CT was negative for any acute injury - Given gently IVF - vicente placed - Cont. pain control PRN with [place] and Morphine - NPO for surgery today - Supportive care - DVT prophylaxis with SCDs -sabrina probably need snf. although pt is still hopeful for c/pt Left clavicular fracture - She reports that one week ago she tripped and fell in the bathroom over the bath mat and fractured her left clavicle and is in a sling. - Pt not reporting any increased pain in the left arm/shoulder area - IS use with sling in place Hx of atrial fibrillation Hx of symptomatic bradycardia s/p PPM in 2013 - Pt currently in NSR on telemetry - EKG - Cont. telemetry monitoring - Resume Metoprolol and Norvasc - Pt takes ASA 81mg po daily as an outpt for anticoagulation - She has been on Xarelto in the past when she had previous hip surgery in 2014 HTN - Resume home meds - Clonidine PRN - Vasotec PRN COPD, PFTs in 2012 noted moderately severe obstructive lung defect Hx of tobacco use, none since 1985 - Pt does not use any inhalers or nebulizers as an outpt - Duonebs PRN (2) Hypertension ICD Codes: I10 - Hypertension Status: Acute (3) Afib ICD Codes: I48.91 - Afib Status: Acute (4) History of pacemaker ICD Codes: Z95.0 - History of pacemaker Status: Acute Problem Qualifiers (1) Hip fracture, left: Qualified Codes: S72.002A - Fracture of unspecified part of neck of left femur , initial encounter for closed fracture Sly Reis MD May 23, 2017 13:48
[2017-05-23] MEDS ORDERED: VANCOMYCIN HCL 1000 MG VIAL ONE (15:17)
[2017-05-23] MEDS ORDERED: ceFAZolin INJ 1,000 MG VIAL ONE (15:17)
--- NOTE | 2017-05-23 17:06 | HHI.PR ---
cc: Zaria Espinoza MD Immediate Post Op Note Procedure Date: May 23, 2017 Pre Op Diagnosis: Left intertrochanteric and basicervical femoral fracture Post Op Diagnosis: Same Surgeon: Zaria Espinoza Knitter Helper(s): None Procedure: Intramedullary nail left femur Complications: None Specimen(s) removed: None Estimated blood loss: 100 cc Anesthesia: General Drains: None IVF Patient to: PACU Patient Condition: Good Implant/Devices: SEE IMPLANT LOG (if applicable) Date/Time of Procedure: SEE SURGICAL CARE RECORD Zaria Espinoza MD May 23, 2017 17:06
[2017-05-23] MEDS ORDERED: Post-op Orders (for Pharmacy) XX ONE (17:15)
[2017-05-23] MEDS ORDERED: SODIUM CHLORIDE 0.9% FLUSH 10 ML FLUSH IV FLUSH PRN (17:15)
[2017-05-23] MEDS ORDERED: MIDAZOLAM HCL 2 MG/2 ML VIAL ONE (17:28)
--- NOTE | 2017-05-23 17:41 | EKG ---
Date Performed: 05/22/2017 Time Performed: 13:00:26 PTAGE: 81 years EKG: ELECTRONIC ATRIAL PACEMAKER SEPTAL MYOCARDIAL INFARCTION ABNORMAL ECG Compared to prior tra cing, atrial pacemaker spikes now noted DOCTOR: Andreas Sosa Interpretating Date/Time 05/23/2017 17:40:45
[2017-05-23] MEDS ORDERED: *LABETALOL HCL 100 MG/20 ML VIAL PERIprocedural Use ONLY ONE (17:47)
--- NOTE | 2017-05-23 17:53 | RADRPT ---
EXAM DATE/TIME: 05/23/2017 16:47 [facility] COMPARISON: HIP LEFT (AP&LAT 2/3VWS) WO AP PELVIS, May 22, 2017, 12:38. INDICATIONS : Post hardware placement left hip MEDICAL HISTORY : Cardiovascular disease. Hypertension. Carcinoma, thyroid SURGICAL HISTORY : Appendectomy. Cholecystectomy. Hysterectomy.Gastric bypass ENCOUNTER: Subsequent ACUITY: 1 day PAIN SCORE: Non-responsive. LOCATION: Left Hip FINDINGS: 4 images are recorded digitally in the operating room and placement of a intramedullary lowell and troch anteric nail. There is a distal intercalated screw as well. CONCLUSION: Intraoperative images. Rajan Lopez MD on May 23, 2017 at 17:50 Board Certified Radiologist. This report was verified electronically.
[2017-05-23] MEDS ORDERED: DO NOT ADM ANY ANTICOAGULANT DRUGS PRN (18:00)
[2017-05-23] MEDS ORDERED: *morphine SULFATE 4 MG/ML PERIprocedure ONLY ONE (18:05)
[2017-05-23 18:15] VITALS: BP 150/68; PULSE 61; RESP 18; TEMP 96.1; O2SAT 95
[2017-05-23 20:00] VITALS: PULSE 70
[2017-05-23] MEDS: SODIUM CHLORIDE 0.9% FLUSH 10 ML FLUSH IV FLUSH SCH (20:55)
[2017-05-23 23:35] VITALS: BP 111/53; PULSE 67; RESP 17; TEMP 97.3; O2SAT 93
[2017-05-24] VITALS (9 sets, daily range): BP systolic 99–124; BP diastolic 48–64; PULSE 61–75; RESP 16–18; TEMP 96.1–99.7; O2SAT 93–98
[2017-05-24] MEDS: SODIUM CHLOR 0.9% 1000 ML INJ 1,000 ML IV SCH ×2 (04:15→08:17)
[2017-05-24] MEDS: ENOXAPARIN SODIUM 40 MG/0.4 ML SYRINGE SQ SCH (05:44)
[2017-05-24] MEDS: LEVOTHYROXINE SODIUM 125 MCG TAB PO SCH (05:44)
[2017-05-24] MEDS: ACETAMINOPHEN/HYDROcodone 325 MG/7.5 MG TAB PO PRN ×3 (05:46→18:24)
--- NOTE | 2017-05-24 07:58 | PD.ORT.PN ---
Subjective Subjective Remarks Patient resting comfortably currently. Denies chest pain or shortness of breath. Does report left hip discomfort Objective Vitals Vital Signs Date Time Temp Pulse Resp B/P (MAP) Pulse Ox O2 Delivery O2 Flow Rate FiO2 05/24/17 04:35 98.5 67 18 115/52 (73) 93 05/24/17 04:00 65 05/24/17 00:00 64 05/23/17 23:35 97.3 67 17 111/53 (72) 93 05/23/17 20:00 70 05/23/17 18:15 96.1 61 18 150/68 (95) 95 05/23/17 18:10 98.0 68 16 142/68 (92) 99 Nasal Cannula 3 05/23/17 17:55 63 16 143/66 (91) 99 Nasal Cannula 3 05/23/17 17:45 70 16 182/74 (110) 99 Nasal Cannula 3 05/23/17 17:30 72 16 167/71 (103) 99 Nasal Cannula 3 05/23/17 17:20 98.0 75 16 172/74 (106) 95 Nasal Cannula 3 05/23/17 12:00 69 05/23/17 12:00 100.2 64 18 130/72 (91) 90 05/23/17 09:01 18 05/23/17 08:00 98.0 63 18 115/65 (82) 90 I/O 05/23/17 05/23/17 05/23/17 05/24/17 05/24/17 05/24/17 07:00 15:00 23:00 07:00 15:00 23:00 Intake Total 240 ml 1880 ml 1542 ml Output Total 1125 ml 450 ml 600 ml 250 ml Balance -885 ml -450 ml 1280 ml 1292 ml Intake Oral 240 ml 480 ml 480 ml IV Total 1062 ml Other 1400 ml Output Urine Total 1125 ml 450 ml 550 ml 250 ml Estimated Blood Loss 50 ml # Voids 1 # Bowel Movements 0 0 0 Result Diagram: 05/23/1762405/23/17624 Objective Remarks Awake, alert, no acute distress. Left upper extremity in sling. Neurovascular intact distally. Left lower extremity: dressings in place without significant drainage. Neurovascularly intact distally. Negative Homans. Brisk cap refill Assessment & Plan Assessment and Plan 81-year-old female, POD#1 s/p IMN L intertrochanteric femur fracture, nonop mgmt L distal clavicle fracture 1. Continue sling to left upper extremity and maintain nonweightbearing except for mobilization. Okay to use left upper extremity for mobilization with a walker 2. Partial weightbearing 50% left lower extremity. PT for mobilization 3. Lovenox for DVT prophylaxis while inpatient, plan for xarelto upon discharge. 4. Dressing changes to start on postop day 2 5. Discharge planning, patient likely will require rehabilitation placement Zaria Espinoza MD May 24, 2017 07:58
[2017-05-24] MEDS: SODIUM CHLORIDE 0.9% FLUSH 10 ML FLUSH IV FLUSH SCH ×2 (08:15→21:23)
[2017-05-24] MEDS: DULoxetine HCl DR 30 MG CAP PO SCH (08:15)
[2017-05-24] MEDS: METOPROLOL TARTRATE 25 MG TAB PO SCH (08:15)
[2017-05-24] MEDS: amLODIPine BESYLATE 5 MG TAB PO SCH (08:16)
--- NOTE | 2017-05-24 15:57 | HHI.PR ---
Subjective Remarks Pain is controlled. Objective Vitals Vital Signs Date Time Temp Pulse Resp B/P (MAP) Pulse Ox O2 Delivery O2 Flow Rate FiO2 05/24/17 15:42 98.7 69 16 99/56 (70) 93 05/24/17 12:21 97.6 61 16 105/48 (67) 94 05/24/17 08:00 96.1 65 18 124/61 (82) 98 05/24/17 04:35 98.5 67 18 115/52 (73) 93 05/24/17 04:00 65 05/24/17 00:00 64 05/23/17 23:35 97.3 67 17 111/53 (72) 93 05/23/17 20:00 70 05/23/17 18:15 96.1 61 18 150/68 (95) 95 05/23/17 18:10 98.0 68 16 142/68 (92) 99 Nasal Cannula 3 05/23/17 17:55 63 16 143/66 (91) 99 Nasal Cannula 3 05/23/17 17:45 70 16 182/74 (110) 99 Nasal Cannula 3 05/23/17 17:30 72 16 167/71 (103) 99 Nasal Cannula 3 05/23/17 17:20 98.0 75 16 172/74 (106) 95 Nasal Cannula 3 05/24/17 05/24/17 05/25/17 15:00 23:00 07:00 Intake Total 513 ml Balance 513 ml IV Total 513 ml Result Diagram: 05/23/17 0625 05/23/17 0625 Imaging Last Impressions Hip X-Ray 05/22/17 0000 Signed Impressions: Service Date/Time: Monday, May 22, 2017 12:38 - CONCLUSION: Comminuted intertrochanteric fracture. Julieta Hopson MD Head CT 05/22/17 0000 Signed Impressions: Service Date/Time: Monday, May 22, 2017 13:44 - CONCLUSION: No acute disease. No significant change has occurred. Yury Perez MD Femur X-Ray 05/22/17 0000 Signed Impressions: Service Date/Time: Monday, May 22, 2017 12:38 - CONCLUSION: Comminuted displaced intertrochanteric fracture. Julieta Hopson MD Cervical Spine CT 05/22/17 0000 Signed Impressions: Service Date/Time: Monday, May 22, 2017 13:44 - CONCLUSION: Stable degenerative changes of the cervical spine. No evidence of acute bony injury. Yury Perez MD Objective Remarks GENERAL: This is a well-nourished, well-developed patient, in no apparent distress. CARDIOVASCULAR: Regular rate and rhythm without murmurs, gallops, or rubs. RESPIRATORY: Clear to auscultation. Breath sounds equal bilaterally. No wheezes , rales, or rhonchi. GASTROINTESTINAL: Abdomen soft, non-tender, nondistended. Normal active bowel sounds MUSCULOSKELETAL: Extremities without clubbing, cyanosis, or edema. NEURO: Alert & Oriented x4 to person, place, time, situation. Moves all ext x4 A/P Problem List: (1) Hip fracture, left ICD Codes: S72.002A - Fracture of unspecified part of neck of left femur, initial encounter for closed fracture Status: Acute Plan: Left hip intertrochanteric fracture - Pt is an 81 y/o female with HTN, hx of atrial fibrillation, osteoporosis/ osteoarthritis and hx of symptomatic bradycardia s/p PPM in 2013. - Pt presented to the ED at [facility] [place] on 05/22/17 after a mechanical fall at home when she somehow tripped and fell in the kitchen although she does not remember what she tripped over. No reported dizziness, weakness, syncope or presyncope. - X-rays in the ED revealed a left comminuted displaced intertrochanteric fracture. - Orthopedic surgery has been consulted. - CT hip 05/22 confirms the fracture - Head CT was negative for acute changes - Cervical spine CT was negative for any acute injury - POD, #1 - norco/morphine prn pain - lovenox - PT - anticipate d/c to SNF 05/26 - supportive care Left clavicular fracture - She reports that one week ago she tripped and fell in the bathroom over the bath mat and fractured her left clavicle and is in a sling. - Pt not reporting any increased pain in the left arm/shoulder area - IS use with sling in place Hx of atrial fibrillation Hx of symptomatic bradycardia s/p PPM in 2013 - Pt currently in NSR on telemetry - EKG - Cont. telemetry monitoring - Resume Metoprolol and Norvasc - Pt takes ASA 81mg po daily as an outpt for anticoagulation - She has been on Xarelto in the past when she had previous hip surgery in 2014 HTN - Resume home meds - Clonidine PRN - Vasotec PRN COPD, PFTs in 2012 noted moderately severe obstructive lung defect Hx of tobacco use, none since 1985 - Pt does not use any inhalers or nebulizers as an outpt - Duonebs PRN (2) Hypertension ICD Codes: I10 - Hypertension Status: Acute (3) Afib ICD Codes: I48.91 - Afib Status: Acute (4) History of pacemaker ICD Codes: Z95.0 - History of pacemaker Status: Acute Problem Qualifiers (1) Hip fracture, left: Qualified Codes: S72.002A - Fracture of unspecified part of neck of left femur , initial encounter for closed fracture Jakob Huston DO May 24, 2017 15:57
[2017-05-24] MEDS ORDERED: BISACODYL 10 MG SUPP RECTAL SCH (21:00)
[2017-05-24] MEDS: POLYETHYLENE GLYCOL 17 GM PKG PO SCH (21:23)
[2017-05-24] MEDS: DOCUSATE SODIUM 100 MG CAP PO SCH (21:23)
[2017-05-25] VITALS (9 sets, daily range): BP systolic 103–135; BP diastolic 47–74; PULSE 65–88; RESP 17–18; TEMP 97.5–99.2; O2SAT 91–96
[2017-05-25] MEDS: ACETAMINOPHEN/HYDROcodone 325 MG/7.5 MG TAB PO PRN ×6 (00:01→22:15)
[2017-05-25] MEDS: LEVOTHYROXINE SODIUM 125 MCG TAB PO SCH (05:19)
[2017-05-25] MEDS: ENOXAPARIN SODIUM 40 MG/0.4 ML SYRINGE SQ SCH (05:19)
[2017-05-25] MEDS: SODIUM CHLORIDE 0.9% FLUSH 10 ML FLUSH IV FLUSH SCH ×2 (07:54→08:12)
[2017-05-25] MEDS: MAGNESIUM HYDROXIDE SUSP 30 ML CUP PO PRN (08:10)
[2017-05-25] MEDS: POLYETHYLENE GLYCOL 17 GM PKG PO SCH (08:14)
[2017-05-25] MEDS: DULoxetine HCl DR 30 MG CAP PO SCH (08:14)
[2017-05-25] MEDS: DOCUSATE SODIUM 100 MG CAP PO SCH ×2 (08:14→20:08)
[2017-05-25] MEDS: amLODIPine BESYLATE 5 MG TAB PO SCH (08:15)
[2017-05-25] MEDS: METOPROLOL TARTRATE 25 MG TAB PO SCH (08:15)
--- NOTE | 2017-05-25 09:01 | RADRPT ---
EXAM DATE/TIME: 05/25/2017 07:58 [facility] COMPARISON: CHEST SINGLE AP, October 30, 2014, 17:08. INDICATIONS : Cough and shortness of breath. MEDICAL HISTORY : Cardiovascular disease. Hypertension. Carcinoma, thyroid. SURGICAL HISTORY : Pacemaker. Appendectomy. Cholecystectomy. Hysterectomy.Gastric bypass. ENCOUNTER: Subsequent ACUITY: 1 day PAIN SCORE: 0/10 LOCATION: Bilateral chest FINDINGS: Stable dual-lead pacemaker. Lungs are hyperexpanded with diffuse interstitial prominence. No signific ant new focal pleural or parenchymal opacities. Cardiomediastinal contours are stable. Remainder of e xam is unchanged. CONCLUSION: 1. No acute abnormality or significant interval change. Ranjit Turk MD on May 25, 2017 at 8:58 Board Certified Radiologist. This report was verified electronically.
[2017-05-25] MEDS ORDERED: HYDR-3580 PO (10:05)
[2017-05-25] MEDS ORDERED: XARE10TA PO (10:05)
--- NOTE | 2017-05-25 10:25 | PD.ORT.PN ---
Subjective Subjective Remarks Patient resting comfortably currently. Denies chest pain or shortness of breath. States her left hip pain is improved Objective Vitals Vital Signs Date Time Temp Pulse Resp B/P (MAP) Pulse Ox O2 Delivery O2 Flow Rate FiO2 05/25/17 08:00 97.5 76 17 125/64 (84) 91 05/25/17 05:25 98.3 68 18 135/57 (83) 92 05/25/17 00:20 99.0 67 18 119/57 (77) 96 05/25/17 00:00 68 05/24/17 20:20 99.7 73 18 108/64 (79) 93 05/24/17 20:13 75 05/24/17 18:13 68 05/24/17 15:42 98.7 69 16 99/56 (70) 93 05/24/17 12:21 97.6 61 16 105/48 (67) 94 I/O 05/24/17 05/24/17 05/24/17 05/25/17 05/25/17 05/25/17 07:00 15:00 23:00 07:00 15:00 23:00 Intake Total 1542 ml 753 ml 240 ml Output Total 250 ml 100 ml 400 ml Balance 1292 ml -100 ml 353 ml 240 ml Intake Oral 480 ml 240 ml 240 ml IV Total 1062 ml 513 ml Output Urine Total 250 ml 100 ml 400 ml Bladder Scan Volume Amount 315 ml # Voids 0 1 # Bowel Movements 0 0 0 Result Diagram: 05/23/17 0625 05/23/17 0625 Imaging Last 24 hours Impressions Chest X-Ray 05/25/17 0800 Signed Impressions: Service Date/Time: Thursday, May 25, 2017 07:58 - CONCLUSION: 1. No acute abnormality or significant interval change. Ranjit Turk MD Objective Remarks Awake, alert, no acute distress. Left upper extremity in sling. Neurovascular intact distally. Left lower extremity: dressings in place without significant drainage. Neurovascularly intact distally. Negative Homans. Brisk cap refill Assessment & Plan Assessment and Plan 81-year-old female, POD#2 s/p IMN L intertrochanteric femur fracture, nonop mgmt L distal clavicle fracture 1. Continue sling to left upper extremity and maintain nonweightbearing except for mobilization. Okay to use left upper extremity for mobilization with a walker 2. Partial weightbearing 50% left lower extremity. PT for mobilization 3. Lovenox for DVT prophylaxis while inpatient, plan for xarelto upon discharge. 4. Dressing changes to start on postop day 2 5. Discharge planning, patient likely will require rehabilitation placement Zaria Espinoza MD May 25, 2017 10:24
[2017-05-25 12:31] LABS: AUTOMATED NEUTROPHIL # 6.1 TH/MM3 (1.8-7.7); BASOPHIL # 0.1 TH/MM3 (0-0.2); BASOPHIL % 0.9 % (0.0-2.0); EOSINOPHIL # 0.3 TH/MM3 (0-0.4); HEMATOCRIT 28.1 % (35.0-46.0); HEMOGLOBIN 9.5 GM/DL (11.6-15.3); LYMPH % 14.5 % (9.0-44.0); LYMPHOCYTE # 1.2 TH/MM3 (1.0-4.8); MEAN CELL VOLUME 83.6 FL (80.0-100.0); MEAN CORPUSCULAR HEMOGLOBIN 28.1 PG (27.0-34.0); MEAN CORPUSCULAR HGB CONC 33.7 % (32.0-36.0); MONO % 8.9 % (0.0-8.0); MONOCYTE # 0.8 TH/MM3 (0-0.9); NEUT % 72.7 % (16.0-70.0); PLATELET COUNT 130 TH/MM3 (150-450); RED BLOOD COUNT 3.37 MIL/MM3 (4.00-5.30); RED CELL DISTRIBUTION WIDTH 15.1 % (11.6-17.2); WHITE BLOOD COUNT 8.4 TH/MM3 (4.0-11.0)
[2017-05-25] MEDS ORDERED: DOCU1CAP39 PO (14:29)
[2017-05-25] MEDS ORDERED: BISA10R RECTAL (14:29)
--- NOTE | 2017-05-25 14:35 | HHI.DS ---
Discharge Summary Admission Date May 22, 2017 at 13:53 Discharge Date: May 26, 2017 Admitting Diagnosis Hip fracture (1) Hip fracture, left Diagnosis: Principal ICD Codes: S72.002A - Fracture of unspecified part of neck of left femur, initial encounter for closed fracture Status: Acute (2) Hypertension Diagnosis: Secondary ICD Codes: I10 - Hypertension Status: Acute (3) Afib Diagnosis: Secondary ICD Codes: I48.91 - Afib Status: Acute (4) History of pacemaker Diagnosis: Secondary ICD Codes: Z95.0 - History of pacemaker Status: Acute Consultants Dr. Espinoza Procedures Left trochanteric nail 05/23/[address] Espinoza Brief History Mrs. Hutchinson is a pleasant 81 y/o WF with HTN, hx of atrial fibrillation, osteoporosis/osteoarthritis and hx of symptomatic bradycardia s/p PPM in 2013. Pt presented to the ED at [facility] [place] on 05/22/17 after a mechanical fall at home. She reports that she was making breakfast this morning in the kitchen when she somehow tripped and fell although she does not remember what she tripped over. She denies any dizziness, syncope or presyncope. She had immediate left hip pain and pushed her medical alert device. She reports that one week ago she tripped and fell in the bathroom over the bath mat and fractured her left clavicle and is in a sling. Patient typically gets around in her home under her own power. She occasionally uses a cane for balance when she is outside the house. She lives with her daughter and son-in-law but they have been out of town on vacation for the last week. Her grand-daughter, Kalpana, is at her bedside currently. She denies any chest pain, SOB, palpitations, weakness, diaphoresis, nausea/vomiting. X-rays in the ED revealed a left comminuted displaced intertrochanteric fracture. Orthopedic surgery has been consulted. CBC/BMP: 05/25/17 1216 05/23/17 0625 Significant Findings Laboratory Tests Test 05/22/17 20:15 05/23/17 06:25 05/25/17 12:16 Red Blood Count 3.90 MIL/MM3 (4.00-5.30) 3.37 MIL/MM3 (4.00-5.30) Hemoglobin 10.8 GM/DL (11.6-15.3) 9.5 GM/DL (11.6-15.3) Hematocrit 32.5 % (35.0-46.0) 28.1 % (35.0-46.0) Platelet Count 115 TH/MM3 (150-450) 130 TH/MM3 (150-450) Monocytes (%) (Auto) 10.2 % (0.0-8.0) 8.9 % (0.0-8.0) Lymphocytes # (Auto) 0.9 TH/MM3 (1.0-4.8) Calcium Level 8.2 MG/DL (8.5-10.1) Neutrophils (%) (Auto) 72.7 % (16.0-70.0) Imaging Last Impressions Chest X-Ray 05/25/17 0800 Signed Impressions: Service Date/Time: Thursday, May 25, 2017 07:58 - CONCLUSION: 1. No acute abnormality or significant interval change. Ranjit Turk MD Hip X-Ray 05/23/17 0000 Signed Impressions: Service Date/Time: Tuesday, May 23, 2017 16:47 - CONCLUSION: Intraoperative images. Rajan Lopez MD Clavicle X-Ray 05/23/17 0000 Signed Impressions: Service Date/Time: Tuesday, May 23, 2017 13:09 - CONCLUSION: Distal left clavicle fracture as described Yury Perez MD Lower Extremity CT 05/22/17 0000 Signed Impressions: Service Date/Time: Monday, May 22, 2017 13:48 - CONCLUSION: Comminuted left femur intertrochanteric fracture with mild impaction. Yury Perez MD Head CT 05/22/17 0000 Signed Impressions: Service Date/Time: Monday, May 22, 2017 13:44 - CONCLUSION: No acute disease. No significant change has occurred. Yury Perez MD Femur X-Ray 05/22/17 0000 Signed Impressions: Service Date/Time: Monday, May 22, 2017 12:38 - CONCLUSION: Comminuted displaced intertrochanteric fracture. Julieta Hopson MD Cervical Spine CT 05/22/17 0000 Signed Impressions: Service Date/Time: Monday, May 22, 2017 13:44 - CONCLUSION: Stable degenerative changes of the cervical spine. No evidence of acute bony injury. Yury Perez MD PE at Discharge GENERAL: This is a well-nourished, well-developed patient, in no apparent distress. CARDIOVASCULAR: Regular rate and rhythm without murmurs, gallops, or rubs. RESPIRATORY: Clear to auscultation. Breath sounds equal bilaterally. No wheezes , rales, or rhonchi. GASTROINTESTINAL: Abdomen soft, non-tender, nondistended. Normal active bowel sounds MUSCULOSKELETAL: Extremities without clubbing, cyanosis, or edema. NEURO: Alert & Oriented x4 to person, place, time, situation. Moves all ext x4 Hospital Course Left hip intertrochanteric fracture - Pt is an 81 y/o female with HTN, hx of atrial fibrillation, osteoporosis/ osteoarthritis and hx of symptomatic bradycardia s/p PPM in 2013. - Pt presented to the ED at [facility] [place] on 05/22/17 after a mechanical fall at home when she somehow tripped and fell in the kitchen although she does not remember what she tripped over. No reported dizziness, weakness, syncope or presyncope. - X-rays in the ED revealed a left comminuted displaced intertrochanteric fracture. - Orthopedic surgery has been consulted. - CT hip 05/22 confirms the fracture - Head CT was negative for acute changes - Cervical spine CT was negative for any acute injury - cleared for DC per orthopedic surgery - norco/morphine prn pain - lovenox - PT - anticipate d/c to SNF - supportive care Left clavicular fracture - She reports that one week ago she tripped and fell in the bathroom over the bath mat and fractured her left clavicle and is in a sling. - Pt not reporting any increased pain in the left arm/shoulder area - IS use with sling in place Hx of atrial fibrillation Hx of symptomatic bradycardia s/p PPM in 2013 - Pt currently in NSR on telemetry - EKG - Cont. telemetry monitoring - Resume Metoprolol and Norvasc - Pt takes ASA 81mg po daily as an outpt for anticoagulation - She has been on Xarelto in the past when she had previous hip surgery in 2014 HTN - Resume home meds - Clonidine PRN - Vasotec PRN COPD, PFTs in 2012 noted moderately severe obstructive lung defect Hx of tobacco use, none since 1985 - Pt does not use any inhalers or nebulizers as an outpt - Duonebs PRN Pt Condition on Discharge: Stable Discharge Disposition: Discharge to SNF Discharge Instructions DIET: Follow Instructions for: As Tolerated, No Restrictions Activities you can perform: See Additionl Instruction Other Activity Instructions: Left lower extremity 50% weight bearing nonweightbearing left upper extremity. Sling to Left upper extremity Follow up Referrals: Orthopedics - 2 Weeks @ [facility] with Zaria Espinoza MD PCP Follow-up - [address] Bran New Medications: Rivaroxaban (Xarelto) 10 Mg Tab 10 MG PO DAILY for Blood Clot Prevention for 14 Days, #14 TAB 0 Refills Bisacodyl Supp (Bisac-Evac Supp) 10 Mg Supp 10 MG RECTAL HS PRN for CONSTIPATION for 14 Days, EACH 0 Refills Docusate Sodium (Dok) 100 Mg Cap 100 MG PO BID for stool softener for 30 Days, #60 CAP 0 Refills Hydrocodone/Acetaminophen (Hydrocodone-Acetamin 7.5-325) 7.5 Mg-325 Mg Tablet 1 TAB PO Q4H PRN for pain, #45 TAB Continued Medications: Amlodipine (Amlodipine) 5 Mg Tab 5 MG PO DAILY for Blood Pressure Management, TAB [address] (Duloxetine DR) 30 Mg Capdr 30 MG PO DAILY, CAP 0 Refills Levothyroxine (Levothyroxine) 125 Mcg Tab 125 MCG PO DAILY for Thyroid, TAB 0 Refills Metoprolol Tartrate (Lopressor) 50 Mg Tab 25 MG PO DAILY, TAB 0 Refills Multivitamin (Once Daily) 1 Each Tablet 1 TAB PO DAILY Discontinued Medications: Aspirin (Aspirin) 81 Mg Chew 81 MG CHEW DAILY, TAB 0 Refills Additional Information Patient examined. Assessment and plan formulated with Demetra Toure PA-C. I agree with the above. Demetra Toure May 25, 2017 14:35 Jakob Huston DO May 31, 2017 00:34
--- NOTE | 2017-05-25 17:04 | HHI.PR ---
Subjective Remarks Patient does not want to go to a SNF, "at this time of night." Objective Vitals Vital Signs Date Time Temp Pulse Resp B/P (MAP) Pulse Ox O2 Delivery O2 Flow Rate FiO2 05/25/17 12:05 74 05/25/17 11:47 99.2 65 17 118/55 (76) 92 05/25/17 08:00 65 05/25/17 08:00 97.5 76 17 125/64 (84) 91 05/25/17 05:25 98.3 68 18 135/57 (83) 92 05/25/17 00:20 99.0 67 18 119/57 (77) 96 05/25/17 00:00 68 05/24/17 20:20 99.7 73 18 108/64 (79) 93 05/24/17 20:13 75 05/24/17 18:13 68 Result Diagram: 05/25/17 1216 05/23/17 0625 Imaging Last Impressions Hip X-Ray 05/22/17 0000 Signed Impressions: Service Date/Time: Monday, May 22, 2017 12:38 - CONCLUSION: Comminuted intertrochanteric fracture. Julieta Hopson MD Head CT 05/22/17 0000 Signed Impressions: Service Date/Time: Monday, May 22, 2017 13:44 - CONCLUSION: No acute disease. No significant change has occurred. Yury Perez MD Femur X-Ray 05/22/17 0000 Signed Impressions: Service Date/Time: Monday, May 22, 2017 12:38 - CONCLUSION: Comminuted displaced intertrochanteric fracture. Julieta Hopson MD Cervical Spine CT 05/22/17 0000 Signed Impressions: Service Date/Time: Monday, May 22, 2017 13:44 - CONCLUSION: Stable degenerative changes of the cervical spine. No evidence of acute bony injury. Yury Perez MD Objective Remarks GENERAL: This is a well-nourished, well-developed patient, in no apparent distress. CARDIOVASCULAR: Regular rate and rhythm without murmurs, gallops, or rubs. RESPIRATORY: Clear to auscultation. Breath sounds equal bilaterally. No wheezes , rales, or rhonchi. GASTROINTESTINAL: Abdomen soft, non-tender, nondistended. Normal active bowel sounds MUSCULOSKELETAL: Extremities without clubbing, cyanosis, or edema. NEURO: Alert & Oriented x4 to person, place, time, situation. Moves all ext x4 Procedures Left trochanteric nail 05/23/[address] Olga Sims/Valery Problem List: (1) Hip fracture, left ICD Codes: S72.002A - Fracture of unspecified part of neck of left femur, initial encounter for closed fracture Status: Acute Plan: Left hip intertrochanteric fracture - Pt is an 81 y/o female with HTN, hx of atrial fibrillation, osteoporosis/ osteoarthritis and hx of symptomatic bradycardia s/p PPM in 2013. - Pt presented to the ED at [facility] [place] on 05/22/17 after a mechanical fall at home when she somehow tripped and fell in the kitchen although she does not remember what she tripped over. No reported dizziness, weakness, syncope or presyncope. - X-rays in the ED revealed a left comminuted displaced intertrochanteric fracture. - Orthopedic surgery has been consulted. - CT hip 05/22 confirms the fracture - Head CT was negative for acute changes - Cervical spine CT was negative for any acute injury - cleared for DC per orthopedic surgery - norco/morphine prn pain - lovenox - PT - anticipate d/c to SNF 05/26 - supportive care Left clavicular fracture - She reports that one week ago she tripped and fell in the bathroom over the bath mat and fractured her left clavicle and is in a sling. - Pt not reporting any increased pain in the left arm/shoulder area - IS use with sling in place Hx of atrial fibrillation Hx of symptomatic bradycardia s/p PPM in 2013 - Pt currently in NSR on telemetry - EKG - Cont. telemetry monitoring - Resume Metoprolol and Norvasc - Pt takes ASA 81mg po daily as an outpt for anticoagulation - She has been on Xarelto in the past when she had previous hip surgery in 2014 HTN - Resume home meds - Clonidine PRN - Vasotec PRN COPD, PFTs in 2012 noted moderately severe obstructive lung defect Hx of tobacco use, none since 1985 - Pt does not use any inhalers or nebulizers as an outpt - Duonebs PRN (2) Hypertension ICD Codes: I10 - Hypertension Status: Acute (3) Afib ICD Codes: I48.91 - Afib Status: Acute (4) History of pacemaker ICD Codes: Z95.0 - History of pacemaker Status: Acute Assessment and Plan Patient examined. Assessment and plan formulated with Demetra Toure PA-C. I agree with the above. Problem Qualifiers (1) Hip fracture, left: Qualified Codes: S72.002A - Fracture of unspecified part of neck of left femur , initial encounter for closed fracture Demetra Toure May 25, 2017 17:04 Jakob Huston DO May 31, 2017 00:33
[2017-05-25] MEDS ORDERED: BISACODYL EC 5 MG TABEC PO SCH (21:00)
[2017-05-26 00:02] VITALS: PULSE 67
[2017-05-26 00:35] VITALS: BP 134/63; PULSE 69; RESP 17; TEMP 98.8; O2SAT 92
[2017-05-26 04:25] VITALS: BP 128/63; PULSE 71; RESP 17; TEMP 99.5; O2SAT 92
[2017-05-26] MEDS: LEVOTHYROXINE SODIUM 125 MCG TAB PO SCH (06:38)
[2017-05-26] MEDS: ENOXAPARIN SODIUM 40 MG/0.4 ML SYRINGE SQ SCH (06:38)
[2017-05-26] MEDS: ACETAMINOPHEN/HYDROcodone 325 MG/7.5 MG TAB PO PRN ×3 (06:38→15:53)
[2017-05-26 08:00] VITALS: BP 125/64; PULSE 72; RESP 17; TEMP 99.2; O2SAT 90
--- NOTE | 2017-05-26 08:30 | PD.OP ---
cc: Zaria Espinoza MD Operative Report Date of Surgery: May 23, 2017 Preoperative Diagnosis: Closed left intertrochanteric/basicervical femur fracture Postoperative Diagnosis: Same Procedure: Intramedullary nail left intertrochanteric femur fracture Anesthesia: General Surgeon: Zaria Espinoza Sql Ssis Developer(s): None Operation and Findings: EBL: 100 cc Complications: None Specimens: None Indications for procedure: Patient is a 81-year-old Female Who Presented with Acute Onset of Left Hip Pain after a Mechanical Trip and Fall. Patient Was Found to Have a Left Intertrochanteric Femur Fracture. Options of management were discussed. Risks of surgery including but not limited to: Infection, nonunion or malunion, hardware malposition or failure, possible need for further surgery, neurovascular injury, and other unforeseen complications were all discussed. At this time the patient has consented to the procedure. In addition, patient was noted to have a left closed distal clavicle fracture sustained approximately 1 week previously. This was elected to be treated non- operatively. Description of procedure: Patient was brought back to the operating room where general anesthesia then ensued. Patient was then positioned on the operating room fracture table with all bony prominences well padded. Patient was prepped and draped in standard sterile fashion. Preoperative antibiotics were given within 1 hour of incision. A timeout was performed to identify correct patient , side, site and procedure to be performed. At this time the fracture was reduced on the table with the use of traction and rotation. A small approximate 2 inch incision was made just proximal and posterior to the greater trochanter. A guidewire was then placed in the tip of the greater trochanter on the AP and lateral radiographs. This was advanced to the lesser trochanteric region. An opening reamer was then used to allow access to the femoral canal and advanced to the lesser trochanteric region. At this time an 11 mm diameter Synthes TFN nail was then placed and advanced into appropriate position on both AP and lateral radiographs. A small lateral based incision was made to allow the drill guides for the proximal screw to be placed through the subcutaneous tissue and fascia down to the lateral cortex. A guidewire was then placed in the femoral neck and into the femoral head in a center center position on AP and lateral radiographs. This was subsequently measured and drilled and then placed. This was verified to be in acceptable position on AP and lateral radiographs. The proximal locking screw was then tightened and backed off a half turn. The guides for the distal locking screw was then placed through a small lateral based incision. This was then drilled, measured and subsequently placed. Final x-rays were obtained which limited the fracture was in acceptable alignment and the hardware was in good position. The insertion handle was then removed. All wounds were thoroughly irrigated with normal saline laden with gentamicin. The subcutaneous tissue and fascia was closed with interrupted Vicryl sutures and the skin subsequently closed with franc. Sterile dressings were then applied. Patient was transferred off the operating room table and awoken from general anesthesia without complication. Disposition: Patient be partial weightbearing 50% of the left lower extremity. Zaria Espinoza MD May 26, 2017 08:30
[2017-05-26] MEDS: SODIUM CHLORIDE 0.9% FLUSH 10 ML FLUSH IV FLUSH SCH (09:00)
[2017-05-26] MEDS: METOPROLOL TARTRATE 25 MG TAB PO SCH (09:03)
[2017-05-26] MEDS: amLODIPine BESYLATE 5 MG TAB PO SCH (09:03)
[2017-05-26] MEDS: DULoxetine HCl DR 30 MG CAP PO SCH (09:03)
[2017-05-26] MEDS: MAGNESIUM HYDROXIDE SUSP 30 ML CUP PO PRN (09:03)
[2017-05-26] MEDS: DOCUSATE SODIUM 100 MG CAP PO SCH (09:03)
[2017-05-26] MEDS: POLYETHYLENE GLYCOL 17 GM PKG PO SCH (09:09)
[2017-05-26 12:00] VITALS: BP 111/47; PULSE 65; RESP 17; TEMP 97.8; O2SAT 93
[2017-05-26] MEDS ORDERED: BISACODYL 10 MG SUPP RECTAL ONE (13:45)
== END 2017-05-26 15:56 | DRG 482 ==
LOC: NEPC 11:31 → NEDA 13:53 → N06A 15:40
PROVIDERS: ADMIT Hospitalist; ATTEND Hospitalist
PROC: 0QS706Z Reposition Left Upper Femur with Intramedullary Internal Fixation Device, Open Approach (ICD-10-PCS; principal; 2017-05-23 15:17)
DX: S72.142A Displaced intertrochanteric fracture of left femur, initial encounter for closed fracture (principal); Y92.000 Kitchen of unspecified non-institutional (private) residence as the place of occurrence of the external cause; W01.0XXA Fall on same level from slipping, tripping and stumbling without subsequent striking against object, initial encounter; J44.9 Chronic obstructive pulmonary disease, unspecified; R00.1 Bradycardia, unspecified; I48.91 Unspecified atrial fibrillation; M81.0 Age-related osteoporosis without current pathological fracture; I10 Essential (primary) hypertension; M19.90 Unspecified osteoarthritis, unspecified site; S42.002D Fracture of unspecified part of left clavicle, subsequent encounter for fracture with routine healing; W01.0XXD Fall on same level from slipping, tripping and stumbling without subsequent striking against object, subsequent encounter; Y92.002 Bathroom of unspecified non-institutional (private) residence as the place of occurrence of the external cause; Z79.82 Long term (current) use of aspirin; Z95.0 Presence of cardiac pacemaker; D50.9 Iron deficiency anemia, unspecified; Z98.84 Bariatric surgery status; E89.0 Postprocedural hypothyroidism; Z85.850 Personal history of malignant neoplasm of thyroid; Z87.891 Personal history of nicotine dependence
CPT/HCPCS: 70450; 71045; 72125; 73000; 73502; 73551; 73700; 76000; 80048; 80053; 83735; 85025; 85610; 85730; 93005; 94150; 96374; 96376; C1713; J0131; J0690; J1100; J1580; J1650; J2250; J2270; J2405; J3010; J3370; J7030; J7050